=== PATIENT | female | born 1990 ===

== ENCOUNTER 2016-06-25 14:58 | Emergency (ER) | payer OTHER ==
[2016-06-25 14:58] VITALS: BMI 32.2
[2016-06-25 15:23] VITALS: BP 130/74; PULSE 73; RESP 16; TEMP 98; O2SAT 100
--- NOTE | 2016-06-25 15:58 | ED PDOC ---
Lower Extremity Pain/Injury Time Seen by Provider: 06/25/16 15:20 Chief Complaint (Nursing): Lower Extremity Problem/Injury Chief Complaint (Provider): Right Ankle Pain History Per: Patient History/Exam Limitations: no limitations Onset/Duration Of Symptoms: Hrs (<1 hour, just LATHE HAND) Current Symptoms Are (Timing): Still Present Severity: Moderate Additional Complaint(s): Jazmín Molina is a 25 year old female, with no pertinent past medical history, who presents to the emergency department for the evaluation of right ankle pain s/p twisting her ankle on uneven pavement, that the patient experienced just prior to arrival. Denies any other medical complaints. PMD: none specified - Ankle/Foot Description Of Injury: Twisted Past Medical History Reviewed: Historical Data, Nursing Documentation, Vital Signs Vital Signs: Last Vital Signs Temp 98.0 F 06/25/16 15:20 Pulse 73 06/25/16 15:20 Resp 16 06/25/16 15:20 BP 130/74 06/25/16 15:20 Pulse Ox 100 06/25/16 15:20 - Medical History PMH: Anemia - Surgical History Surgical History: No Surg Hx - Family History Family History: States: No Known Family Hx - Social History Current smoker - smoking cessation education provided: Yes Alcohol: None Drugs: Denies - Home Medications Home Medications: Ambulatory Orders Medication Instructions Recorded Vit No.126/Iron/FA 1 tab PO DAILY 04/24/15 [Prenavite] Ibuprofen [Motrin Tab] 600 mg PO Q6 #30 tab 01/26/16 predniSONE [predniSONE Tab] 60 mg PO DAILY #9 tab 01/26/16 Ibuprofen [Motrin] 600 mg PO Q6 #20 tab 06/25/16 - Allergies Allergies/Adverse Reactions: Allergies Allergy/AdvReac Type Severity Reaction Status Date / Time No Known Allergies Allergy Verified 04/24/15 10:56 Review of Systems Musculoskeletal: Positive for: Foot Pain (right ankle) Physical Exam - Reviewed Nursing Documentation Reviewed: Yes Vital Signs Reviewed: Yes - Physical Exam Appears: Positive for: Non-toxic, No Acute Distress Head Exam: Positive for: ATRAUMATIC, NORMOCEPHALIC Skin: Positive for: Normal Color, Warm, Dry Cardiovascular/Chest: Positive for: Regular Rate, Rhythm. Negative for: Murmur Respiratory: Positive for: Normal Breath Sounds. Negative for: Respiratory Distress Extremity: Positive for: Normal ROM, Tenderness (right ankle), Swelling (right lateral malleolus) Neurologic/Psych: Positive for: Alert, Oriented - ECG O2 Sat by Pulse Oximetry: 100 (RA) Pulse Ox Interpretation: Normal Medical Decision Making Medical Decision Makin:20 Initial Impression: right ankle pain s/p twist Initial Plan: * Ankle X-Ray * Foot X-Ray * Ibuprofen 600 mg PO * Reevaluation Foot and ankle XR: NAd, as read by ILA Placed in foot ankle air cast, educated in crutch walking RICE therapy advised Scribe Attestation: Documented by Taz Brown, acting as a scribe for KRISTINE Lyman. Provider Scribe Attestation: All medical record entries made by the Scribe were at my direction and personally dictated by me. I have reviewed the chart and agree that the record accurately reflects my personal performance of the history, physical exam, medical decision making, and the department course for this patient. I have also personally directed, reviewed, and agree with the discharge instructions and disposition. Disposition - Clinical Impression Clinical Impression: Ankle injury - Patient ED Disposition Is Patient to be Admitted: No - Disposition Referrals: [facility] [Outside] Disposition: Routine/Home Disposition Time: 16:05 Condition: STABLE Prescriptions: Ibuprofen [Motrin] 600 mg PO Q6 #20 tab Instructions: Ankle Sprain (ED) Forms: [facility] ED School/Work Excuse - POA Present On Arrival: None
--- NOTE | 2016-06-25 17:07 | RAD ---
Two views, right foot Two views, right ankle Indication: Twist injury Comparison: None available Findings: No acute displaced fracture or dislocation identified. Soft tissue swelling, greatest laterally. No evidence of radiopaque foreign body. Impression: Soft tissue swelling, greatest laterally. No acute displaced fracture or dislocation identified. If high clinical index of suspicion persists for occult fracture, cross-sectional imaging may be considered.
== END 2016-06-25 17:12 | disposition home or self-care (01) ==
LOC: MERGE 14:58 → H.ER 14:58
DX: S99.911A Unspecified injury of right ankle, initial encounter (principal); X50.9XXA Other and unspecified overexertion or strenuous movements or postures, initial encounter; Y92.89 Other specified places as the place of occurrence of the external cause; F17.200 Nicotine dependence, unspecified, uncomplicated

== ENCOUNTER 2018-02-10 15:19 | Emergency (ER) | payer MEDICAID, OTHER ==
[2018-02-10 15:19] VITALS: BMI 32.2
[2018-02-10 15:24] VITALS: RESP 16; TEMP 97.5; O2SAT 99
--- NOTE | 2018-02-10 16:07 | ED PDOC ---
HPI: Back Time Seen by Provider: 02/10/18 15:47 Chief Complaint (Nursing): Back Pain Additional Complaint(s): 27 yo female patient presenting with neck pain and left arm tingling since Saturday. Patient states she was doing stretching exercises when pain started. She toke 800mg of Ibuprofen once w/o relief. Pain does not radiates to low back or jaw. She denies weakness, numbness, headache, CP, sob. No h/o of injury or falls. PMD: none provided Past Medical History Vital Signs: Last Vital Signs Temp 97.5 F L 02/10/18 15:22 Pulse 89 02/10/18 15:22 Resp 16 02/10/18 15:22 BP 131/84 02/10/18 15:22 Pulse Ox 99 02/10/18 15:22 - Medical History PMH: Anemia - Surgical History Surgical History: No Surg Hx - Family History Family History: States: Unknown Family Hx - Social History Current smoker - smoking cessation education provided: No Ex-Smoker (has not smoked in the last 12 months): No Alcohol: None Drugs: Denies - Immunization History Hx Tetanus Toxoid Vaccination: No Hx Influenza Vaccination: No Hx Pneumococcal Vaccination: No - Home Medications Home Medications: Ambulatory Orders Medication Instructions Recorded Norgestimate-Ethinyl Estradiol 1 tab PO DAILY 11/10/13 [Ortho Tri-Cyclen Lo 0.025 mg-0.25 mg] Ibuprofen [Motrin] 600 mg PO TID PRN #30 tab 11/11/13 Vit No.126/Iron/Folic 1 tab PO DAILY 04/24/15 [Prenavite] Ibuprofen [Motrin Tab] 600 mg PO Q6 #30 tab 01/26/16 predniSONE [predniSONE Tab] 60 mg PO DAILY #9 tab 01/26/16 Ibuprofen [Motrin] 600 mg PO Q6 #20 tab 06/25/16 Cyclobenzaprine [Flexeril] 5 mg PO Q8H 5 Days #15 tab 02/10/18 Naproxen [Naprosyn] 500 mg PO Q12H 7 Days #14 tablet 02/10/18 - Allergies Allergies/Adverse Reactions: Allergies Allergy/AdvReac Type Severity Reaction Status Date / Time No Known Allergies Allergy Unverified 11/10/13 22:49 Physical Exam - Reviewed Vital Signs Reviewed: Yes - Physical Exam Appears: Positive for: No Acute Distress Head Exam: Positive for: NORMAL INSPECTION Eye Exam: Positive for: EOMI, PERRL Neck: Positive for: Supple, Limited ROM (due to pain, Spurling test negative) Cardiovascular/Chest: Positive for: Regular Rate, Rhythm. Negative for: Tachycardia Respiratory: Positive for: Normal Breath Sounds. Negative for: Rales, Wheezing Gastrointestinal/Abdominal: Positive for: Bowel Sounds, Soft. Negative for: Tenderness, Distended Neurologic/Psych: Positive for: injection press operator II-XII, Oriented. Negative for: Motor/Sensory Deficits - ECG O2 Sat by Pulse Oximetry: 99 - Progress ED Course And Treament: 27 yo female patient with neck pain, likely 2/2 sprain. Plan: - Toradol 30 mg IM once - Flexeril 10mg PO once - Reeval. 1640 reeval: - Patient reported feeling better, pain improved Stable for discharge Disposition - Clinical Impression Clinical Impression: Neck sprain - Patient ED Disposition Is Patient to be Admitted: No - Disposition Referrals: [facility] [Outside] Disposition: Routine/Home Disposition Time: 16:55 Condition: STABLE Additional Instructions: f/u with PCP in 4-5 days Return if worsening or new sx Prescriptions: Cyclobenzaprine [Flexeril] 5 mg PO Q8H 5 Days #15 tab Naproxen [Naprosyn] 500 mg PO Q12H 7 Days #14 tablet Instructions: Cervical Muscle Strain (DC), Neck Sprain (DC)
[2018-02-10 17:17] VITALS: BP 129/78; PULSE 82
== END 2018-02-10 17:00 | disposition home or self-care (01) ==
LOC: H.ER 15:19
DX: S13.9XXA Sprain of joints and ligaments of unspecified parts of neck, initial encounter (principal); Z87.891 Personal history of nicotine dependence
CPT/HCPCS: 81025; 96372; 99283; J1885